=== PATIENT | female | born 1955 | race African-American/Black ===

== ENCOUNTER 2021-10-19 12:09 | Inpatient (IN) ==
[2021-10-19] MEDS ORDERED: ONDANSETRON 4 MG/2 ML VIAL IV PRN (12:23)
[2021-10-19] MEDS ORDERED: GLUCAGON 1 MG VIAL IM PRN (12:25)
[2021-10-19] MEDS ORDERED: DOCUSATE SODIUM 100 MG CAPSULE PO PRN (12:25)
[2021-10-19] MEDS ORDERED: DEXAMETHASONE INJ 20 MG in SODIUM CHLORIDE 0.9% 50 ML IV ONE (12:35)
[2021-10-19] MEDS ORDERED: DEXTROSE 10% 250 ML BAG IV PRN (12:36)
[2021-10-19 14:30] LABS: Basophils # 0.1 10*3/uL (0.0-0.2); Basophils % 0.4 % (0.0-0.8); Eosinophils # 0.2 10*3/uL (0.0-0.87); Eosinophils % 1.1 % (0.00-10.9); Hematocrit 39.2 VOL% (35.7-47.0); Hemoglobin 12.8 GM/DL (12.0-16.0); Immature Granulocytes Absolute 0.16 #; Lymphocytes # 1.1 10*3/uL (1.4-4.0); Lymphocytes % 6.8 % (21.3-54.2); Mean Corpuscular HGB Conc 32.7 GM/DL (32-36); Mean Corpuscular Volume 91.6 FL (87-102); Mean Platelet Volume 10.9 FL (9.6-12.0); Monocytes # 0.9 10*3/uL (0.11-0.8); Monocytes % 5.6 % (1.7-12.7); Neutrophils % 85.1 % (38.7-73.9); Platelet Count 285 T/CUMM (130-400); Red Blood Count 4.28 MC/CUMM (3.8-5.5); Red Cell Distribution Width 13.7 % (9.3-17.3); White Blood Count 16.6 T/CUMM (4-12)
[2021-10-19 14:50] LABS: Alanine Aminotransferase 20 U/L (13-56); Albumin 3.1 G/DL (3.4-5.0); Alkaline Phosphatase 64 U/L (45-117); Aspartate Amino Transferase 19 U/L (0-37); Bilirubin,Total < 0.39 MG/DL (0.20-1.00); Blood Urea Nitrogen 45 MG/DL (7-18); Carbon Dioxide 26 MMOL/L (21-32); Chloride 101 MMOL/L (98-107); Glucose 147 MG/DL (74-106); Osmolality,Calculated 284.1 MOS/KG (273-304); Potassium 3.6 MMOL/L (3.5-5.1); Sodium 135 MMOL/L (136-145); Total Protein 8.9 G/DL (6.4-8.2)
[2021-10-19 14:56] LABS: Calcium 14.2 MG/DL (8.5-10.1)
[2021-10-19] MEDS: ENOXAPARIN 30 MG/0.3 ML SYRINGE SUBCUT SCH (15:25)
[2021-10-19] MEDS: SODIUM CHLORIDE 0.9% 1,000 ML IV SCH (15:26)
[2021-10-19] MEDS: INSULIN LISPRO 100 UNIT/ML SUBCUT SCH ×2 (17:47→21:47)
[2021-10-19] MEDS: SIMVASTATIN 20 MG TABLET PO SCH (21:44)
[2021-10-19] MEDS: ZALEPLON 5 MG CAPSULE PO SCH (21:44)
[2021-10-19] MEDS: ACETAMINOPHEN 325 MG TABLET PO PRN (21:47)
[2021-10-20] MEDS: SODIUM CHLORIDE 0.9% 1,000 ML IV SCH ×2 (01:46→13:17)
[2021-10-20 05:48] LABS: Basophils % 0.1 % (0.0-0.8); Hemoglobin 11.8 GM/DL (12.0-16.0); Immature Granulocytes % 0.9 %; Immature Granulocytes Absolute 0.11 #; Lymphocytes # 0.7 10*3/uL (1.4-4.0); Lymphocytes % 6.3 % (21.3-54.2); Mean Corpuscular HGB Conc 32.8 GM/DL (32-36); Mean Corpuscular Volume 91.8 FL (87-102); Mean Platelet Volume 11.4 FL (9.6-12.0); Monocytes # 0.3 10*3/uL (0.11-0.8); Monocytes % 2.5 % (1.7-12.7); Neutrophils % 90.2 % (38.7-73.9); Platelet Count 281 T/CUMM (130-400); Red Blood Count 3.92 MC/CUMM (3.8-5.5); Red Cell Distribution Width 13.5 % (9.3-17.3); White Blood Count 11.8 T/CUMM (4-12)
[2021-10-20 06:03] LABS: Calcium 13.9 MG/DL (8.5-10.1); Osmolality,Calculated 296.4 MOS/KG (273-304); Potassium 3.3 MMOL/L (3.5-5.1)
[2021-10-20] MEDS ORDERED: POTASSIUM CHLORIDE 20 MEQ TABLET PO ONE (07:55)
[2021-10-20] MEDS ORDERED: LACTULOSE 20 GM/30 ML UDCUP PO ONE (07:56)
[2021-10-20] MEDS: INSULIN LISPRO 100 UNIT/ML SUBCUT SCH ×3 (08:18→17:21)
[2021-10-20] MEDS: POTASSIUM CHLORIDE 20 MEQ TABLET PO SCH (08:47)
[2021-10-20] MEDS: CYPROHEPTADINE 4 MG TABLET PO SCH (08:47)
[2021-10-20] MEDS: PANTOPRAZOLE 40 MG TABLET PO SCH (08:47)
[2021-10-20] MEDS: glipiZIDE 5 MG TABLET PO SCH ×2 (08:47→17:26)
[2021-10-20] MEDS: allopurinoL 100 MG TABLET PO SCH (08:47)
[2021-10-20] MEDS: atenoloL 50 MG TABLET PO SCH (08:48)
[2021-10-20] MEDS: amLODIPine 2.5 MG TABLET PO SCH (08:48)
[2021-10-20] MEDS: DOCUSATE SODIUM 100 MG CAPSULE PO SCH (08:48)
[2021-10-20] MEDS: ZINC GLUCONATE 50 MG TABLET PO SCH (08:48)
[2021-10-20] MEDS: MELOXICAM 7.5 MG TABLET PO SCH (08:48)
[2021-10-20] MEDS: MAGNESIUM CHLORIDE 64 MG TABLET PO SCH (08:48)
[2021-10-20] MEDS: ENALAPRIL 20 MG TABLET PO SCH (08:48)
[2021-10-20] MEDS: CHLORTHALIDONE 25 MG TABLET PO SCH (09:26)
[2021-10-20 12:24] LABS: Immunoglobulin A 318 MG/DL (70-400); Immunoglobulin G 1480 MG/DL (700-1600); Immunoglobulin M 112 MG/DL (40-230)
[2021-10-20] MEDS ORDERED: ZOLEDRONIC ACID 4 MG/100 ML PREMIX IV ONE (13:00)
[2021-10-20] MEDS: ENOXAPARIN 30 MG/0.3 ML SYRINGE SUBCUT SCH (15:09)
[2021-10-20] MEDS: DEXAMETHASONE 10 MG/1 ML VIAL IV SCH (15:09)
[2021-10-20] MEDS: ZALEPLON 5 MG CAPSULE PO SCH (21:05)
[2021-10-20] MEDS: ACETAMINOPHEN 325 MG TABLET PO PRN (21:06)
[2021-10-21] MEDS: INSULIN LISPRO 100 UNIT/ML SUBCUT SCH ×5 (00:04→21:04)
[2021-10-21 06:43] LABS: Basophils % 0.1 % (0.0-0.8); Eosinophils % 0.1 % (0.00-10.9); Hematocrit 36.8 VOL% (35.7-47.0); Hemoglobin 12.2 GM/DL (12.0-16.0); Immature Granulocytes % 1.2 %; Immature Granulocytes Absolute 0.25 #; Lymphocytes # 0.6 10*3/uL (1.4-4.0); Lymphocytes % 2.6 % (21.3-54.2); Mean Corpuscular HGB Conc 33.2 GM/DL (32-36); Mean Corpuscular Volume 90.4 FL (87-102); Mean Platelet Volume 10.9 FL (9.6-12.0); Monocytes # 0.9 10*3/uL (0.11-0.8); Monocytes % 4.2 % (1.7-12.7); Neutrophils % 91.8 % (38.7-73.9); Platelet Count 288 T/CUMM (130-400); Red Blood Count 4.07 MC/CUMM (3.8-5.5); Red Cell Distribution Width 13.7 % (9.3-17.3); White Blood Count 21.3 T/CUMM (4-12)
[2021-10-21 06:59] LABS: Alanine Aminotransferase 23 U/L (13-56); Albumin 2.9 G/DL (3.4-5.0); Alkaline Phosphatase 61 U/L (45-117); Aspartate Amino Transferase 17 U/L (0-37); Bilirubin,Total < 0.39 MG/DL (0.20-1.00); Blood Urea Nitrogen 34 MG/DL (7-18); Calcium 12.7 MG/DL (8.5-10.1); Carbon Dioxide 24 MMOL/L (21-32); Chloride 108 MMOL/L (98-107); Glucose 113 MG/DL (74-106); Osmolality,Calculated 285.5 MOS/KG (273-304); Potassium 3.7 MMOL/L (3.5-5.1); Sodium 139 MMOL/L (136-145)
[2021-10-21 07:14] LABS: Band Neutrophils 1 % (0-10); Lymphocytes 2 % (20-55); Total Cells Counted 100
[2021-10-21 07:15] LABS: Microcytosis Slight; Platelet Estimate Normal
[2021-10-21 07:23] LABS: Immunoglobulin A (Chem) 318 MG/DL (70-400); Immunoglobulin G (Chem) 1480 MG/DL (700-1600); Immunoglobulin M (Chem) 112 MG/DL (40-230); Total Protein (Chem) 8.2 G/DL (6.4-8.3)
[2021-10-21 08:58] LABS: Albumin (SPE) 4.4 G/DL (3.2-5.3); Albumin (SPE) Rel % 53.2 %; Alpha 1 (SPE) 0.4 G/DL (0.1-0.4); Alpha 1 (SPE) Rel % 4.5 %; Alpha 2 (SPE) Rel % 11.8 %; Beta (SPE) 1.1 G/DL (0.5-1.1); Beta (SPE) Rel % 13.8 %; Gamma (SPE) 1.4 G/DL (0.7-1.7); Gamma (SPE) Rel % 16.7 %
[2021-10-21] MEDS ORDERED: BUPIVACAINE MPF 0.25% 10 ML VIAL ONE (09:44)
[2021-10-21] MEDS ORDERED: TISSUE ADHESIVE 1 EACH APPLICATOR TOP ONE (09:44)
[2021-10-21] MEDS ORDERED: LIDOCAINE 1%/EPI INJ 20 ML VIAL ONE (09:44)
[2021-10-21] MEDS ORDERED: fentaNYL 100 MCG/2 ML VIAL ONE (10:24)
[2021-10-21] MEDS ORDERED: MIDAZOLAM 2 MG/2 ML VIAL ONE (10:24)
[2021-10-21] MEDS ORDERED: HEPARIN 5,000 UNIT/1 ML VIAL ONE (10:30)
[2021-10-21] MEDS ORDERED: KETAMINE 500 MG/10 ML VIAL ONE (11:02)
[2021-10-21] MEDS ORDERED: hydrALAZINE 20 MG/1 ML VIAL ONE (11:27)
[2021-10-21] MEDS ORDERED: LABETALOL 20 MG/4 ML SYRINGE IV ONE (11:34)
[2021-10-21 11:40] LABS: Kappa Free Light Chain 4.31 mg/dL; Lambda Free Light Chain 4.28 mg/dL
[2021-10-21] MEDS: CHLORTHALIDONE 25 MG TABLET PO SCH (12:37)
[2021-10-21] MEDS: MELOXICAM 7.5 MG TABLET PO SCH (12:37)
[2021-10-21] MEDS: DOCUSATE SODIUM 100 MG CAPSULE PO SCH (12:37)
[2021-10-21] MEDS: glipiZIDE 5 MG TABLET PO SCH ×2 (12:38→16:58)
[2021-10-21] MEDS: allopurinoL 100 MG TABLET PO SCH (12:38)
[2021-10-21] MEDS: MAGNESIUM CHLORIDE 64 MG TABLET PO SCH (12:38)
[2021-10-21] MEDS: ENALAPRIL 20 MG TABLET PO SCH (12:38)
[2021-10-21] MEDS: CYPROHEPTADINE 4 MG TABLET PO SCH (12:38)
[2021-10-21] MEDS: atenoloL 50 MG TABLET PO SCH (12:39)
[2021-10-21] MEDS: POTASSIUM CHLORIDE 20 MEQ TABLET PO SCH (12:39)
[2021-10-21] MEDS: ZINC GLUCONATE 50 MG TABLET PO SCH (12:39)
[2021-10-21] MEDS: amLODIPine 2.5 MG TABLET PO SCH (12:39)
[2021-10-21] MEDS: PANTOPRAZOLE 40 MG TABLET PO SCH (12:39)
[2021-10-21] MEDS: DEXAMETHASONE 10 MG/1 ML VIAL IV SCH (12:40)
[2021-10-21] MEDS: SODIUM CHLORIDE 0.9% 1,000 ML IV SCH ×2 (15:05→21:04)
[2021-10-21] MEDS ORDERED: MAGNESIUM HYDROXIDE SUSP 30 ML UDCUP PO PRN (19:40)
[2021-10-21] MEDS: SIMVASTATIN 20 MG TABLET PO SCH (20:50)
[2021-10-21] MEDS: ZALEPLON 5 MG CAPSULE PO SCH (20:50)
[2021-10-22] MEDS: INSULIN LISPRO 100 UNIT/ML SUBCUT SCH ×4 (09:00→20:20)
[2021-10-22] MEDS: allopurinoL 100 MG TABLET PO SCH (09:13)
[2021-10-22] MEDS: amLODIPine 2.5 MG TABLET PO SCH (09:13)
[2021-10-22] MEDS: DOCUSATE SODIUM 100 MG CAPSULE PO SCH (09:13)
[2021-10-22] MEDS: MELOXICAM 7.5 MG TABLET PO SCH (09:13)
[2021-10-22] MEDS: PANTOPRAZOLE 40 MG TABLET PO SCH (09:13)
[2021-10-22] MEDS: atenoloL 50 MG TABLET PO SCH (09:13)
[2021-10-22] MEDS: DEXAMETHASONE 10 MG/1 ML VIAL IV SCH (09:13)
[2021-10-22] MEDS: POTASSIUM CHLORIDE 20 MEQ TABLET PO SCH (09:13)
[2021-10-22] MEDS: MAGNESIUM CHLORIDE 64 MG TABLET PO SCH (09:13)
[2021-10-22] MEDS: ZINC GLUCONATE 50 MG TABLET PO SCH (09:13)
[2021-10-22] MEDS: glipiZIDE 5 MG TABLET PO SCH ×2 (09:14→16:20)
[2021-10-22] MEDS: CHLORTHALIDONE 25 MG TABLET PO SCH (09:14)
[2021-10-22] MEDS: ENALAPRIL 20 MG TABLET PO SCH (09:14)
[2021-10-22] MEDS: CYPROHEPTADINE 4 MG TABLET PO SCH (09:14)
[2021-10-22 09:42] LABS: Basophils % 0.2 % (0.0-0.8); Eosinophils # 0.4 10*3/uL (0.0-0.87); Eosinophils % 2.5 % (0.00-10.9); Hematocrit 34.4 VOL% (35.7-47.0); Hemoglobin 11.2 GM/DL (12.0-16.0); Immature Granulocytes Absolute 0.15 #; Lymphocytes # 1.1 10*3/uL (1.4-4.0); Lymphocytes % 7.1 % (21.3-54.2); Mean Corpuscular HGB Conc 32.6 GM/DL (32-36); Mean Platelet Volume 10.7 FL (9.6-12.0); Monocytes # 1.5 10*3/uL (0.11-0.8); Monocytes % 10.2 % (1.7-12.7); Platelet Count 224 T/CUMM (130-400); Red Blood Count 3.74 MC/CUMM (3.8-5.5); Red Cell Distribution Width 13.9 % (9.3-17.3); White Blood Count 14.9 T/CUMM (4-12)
[2021-10-22 10:03] LABS: Alanine Aminotransferase 30 U/L (13-56); Albumin 2.6 G/DL (3.4-5.0); Alkaline Phosphatase 56 U/L (45-117); Aspartate Amino Transferase 20 U/L (0-37); Bilirubin,Total < 0.39 MG/DL (0.20-1.00); Blood Urea Nitrogen 31 MG/DL (7-18); Calcium 10.3 MG/DL (8.5-10.1); Carbon Dioxide 23 MMOL/L (21-32); Chloride 110 MMOL/L (98-107); Glucose 137 MG/DL (74-106); Osmolality,Calculated 287.4 MOS/KG (273-304); Potassium 3.6 MMOL/L (3.5-5.1); Sodium 140 MMOL/L (136-145)
[2021-10-22] MEDS: SODIUM CHLORIDE 0.9% 1,000 ML IV SCH ×2 (16:11→20:21)
[2021-10-22] MEDS: ZALEPLON 5 MG CAPSULE PO SCH (20:20)
[2021-10-23] MEDS: SODIUM CHLORIDE 0.9% 1,000 ML IV SCH ×2 (05:28→17:41)
[2021-10-23 05:53] LABS: Basophils % 0.2 % (0.0-0.8); Eosinophils # 0.1 10*3/uL (0.0-0.87); Eosinophils % 0.6 % (0.00-10.9); Immature Granulocytes % 1.8 %; Immature Granulocytes Absolute 0.32 #; Lymphocytes # 1.1 10*3/uL (1.4-4.0); Mean Corpuscular HGB Conc 32.4 GM/DL (32-36); Mean Corpuscular Volume 92.1 FL (87-102); Mean Platelet Volume 11.1 FL (9.6-12.0); Monocytes # 1.8 10*3/uL (0.11-0.8); Monocytes % 9.7 % (1.7-12.7); Neutrophils % 81.7 % (38.7-73.9); Platelet Count 232 T/CUMM (130-400); Red Blood Count 3.69 MC/CUMM (3.8-5.5); Red Cell Distribution Width 13.8 % (9.3-17.3)
[2021-10-23 06:09] LABS: Alanine Aminotransferase 35 U/L (13-56); Albumin 2.5 G/DL (3.4-5.0); Alkaline Phosphatase 63 U/L (45-117); Aspartate Amino Transferase 15 U/L (0-37); Bilirubin,Total < 0.39 MG/DL (0.20-1.00); Blood Urea Nitrogen 23 MG/DL (7-18); Calcium 10.3 MG/DL (8.5-10.1); Carbon Dioxide 25 MMOL/L (21-32); Chloride 110 MMOL/L (98-107); Glucose 106 MG/DL (74-106); Osmolality,Calculated 282.4 MOS/KG (273-304); Potassium 3.6 MMOL/L (3.5-5.1); Sodium 140 MMOL/L (136-145); Total Protein 7.2 G/DL (6.4-8.2)
[2021-10-23] MEDS: INSULIN LISPRO 100 UNIT/ML SUBCUT SCH ×4 (07:19→20:10)
[2021-10-23] MEDS: PANTOPRAZOLE 40 MG TABLET PO SCH (10:07)
[2021-10-23] MEDS: atenoloL 50 MG TABLET PO SCH (10:07)
[2021-10-23] MEDS: glipiZIDE 5 MG TABLET PO SCH ×2 (10:07→16:42)
[2021-10-23] MEDS: allopurinoL 100 MG TABLET PO SCH (10:08)
[2021-10-23] MEDS: ZINC GLUCONATE 50 MG TABLET PO SCH (10:09)
[2021-10-23] MEDS: CYPROHEPTADINE 4 MG TABLET PO SCH (10:09)
[2021-10-23] MEDS: MELOXICAM 7.5 MG TABLET PO SCH (10:09)
[2021-10-23] MEDS: POTASSIUM CHLORIDE 20 MEQ TABLET PO SCH (10:10)
[2021-10-23] MEDS: ENALAPRIL 20 MG TABLET PO SCH (10:10)
[2021-10-23] MEDS: amLODIPine 2.5 MG TABLET PO SCH (10:12)
[2021-10-23] MEDS: CHLORTHALIDONE 25 MG TABLET PO SCH (10:12)
[2021-10-23] MEDS: DEXAMETHASONE 10 MG/1 ML VIAL IV SCH (10:15)
[2021-10-23] MEDS: MAGNESIUM CHLORIDE 64 MG TABLET PO SCH (10:15)
[2021-10-23] MEDS: DOCUSATE SODIUM 100 MG CAPSULE PO SCH (10:15)
[2021-10-23] MEDS: ACETAMINOPHEN 325 MG TABLET PO PRN ×2 (10:56→17:38)
[2021-10-23] MEDS: ALPRAZolam 0.25 MG TABLET PO SCH ×2 (16:42→20:08)
[2021-10-23] MEDS: LIDOCAINE 5% PATCH TRANSDERM SCH (16:43)
[2021-10-23] MEDS ORDERED: BENZOCAINE/MENTHOL LOZENGE 18/BOX PO PRN (17:01)
[2021-10-23] MEDS ORDERED: FUROSEMIDE 40 MG/4 ML VIAL IV ONE (18:33)
[2021-10-23] MEDS: ALBUTEROL/IPRATROPIUM 3 ML NEB RESP TX SCH (19:44)
[2021-10-23] MEDS: ZALEPLON 5 MG CAPSULE PO SCH (20:08)
[2021-10-23] MEDS: methylPREDNISolone SOD SUC 40 MG/1 ML VIAL IV SCH (20:11)
[2021-10-23] MEDS ORDERED: cefTRIAXone 1,000 MG in SODIUM CHLORIDE 0.9% 100 ML IV SCH (21:00)
[2021-10-24] MEDS: ALBUTEROL/IPRATROPIUM 3 ML NEB RESP TX SCH ×2 (00:28→07:34)
[2021-10-24 05:05] LABS: Basophils % 0.1 % (0.0-0.8); Eosinophils # 0.1 10*3/uL (0.0-0.87); Eosinophils % 0.5 % (0.00-10.9); Hematocrit 35.1 VOL% (35.7-47.0); Hemoglobin 11.4 GM/DL (12.0-16.0); Immature Granulocytes % 1.8 %; Immature Granulocytes Absolute 0.37 #; Lymphocytes # 1.1 10*3/uL (1.4-4.0); Lymphocytes % 5.6 % (21.3-54.2); Mean Corpuscular HGB Conc 32.5 GM/DL (32-36); Mean Corpuscular Volume 91.9 FL (87-102); Monocytes # 1.6 10*3/uL (0.11-0.8); Monocytes % 7.8 % (1.7-12.7); Neutrophils % 84.2 % (38.7-73.9); Platelet Count 227 T/CUMM (130-400); Red Blood Count 3.82 MC/CUMM (3.8-5.5); Red Cell Distribution Width 13.9 % (9.3-17.3); White Blood Count 20.1 T/CUMM (4-12)
[2021-10-24 05:33] LABS: Alanine Aminotransferase 41 U/L (13-56); Albumin 2.7 G/DL (3.4-5.0); Alkaline Phosphatase 59 U/L (45-117); Aspartate Amino Transferase 15 U/L (0-37); Bilirubin,Total < 0.39 MG/DL (0.20-1.00); Blood Urea Nitrogen 23 MG/DL (7-18); Carbon Dioxide 26 MMOL/L (21-32); Chloride 108 MMOL/L (98-107); Glucose 114 MG/DL (74-106); Osmolality,Calculated 285.3 MOS/KG (273-304); Potassium 3.6 MMOL/L (3.5-5.1); Sodium 141 MMOL/L (136-145); Total Protein 7.3 G/DL (6.4-8.2)
[2021-10-24 05:39] LABS: Eosinophils 1 % (0-10); Lymphocytes 5 % (20-55); Platelet Estimate Adequate; Total Cells Counted 100
[2021-10-24] MEDS: SODIUM CHLORIDE 0.9% 1,000 ML IV SCH (06:18)
[2021-10-24] MEDS: INSULIN LISPRO 100 UNIT/ML SUBCUT SCH ×2 (07:58→13:06)
[2021-10-24] MEDS ORDERED: glipiZIDE 10 MG TABLET PO SCH (08:00)
[2021-10-24] MEDS ORDERED: LACTULOSE 20 GM/30 ML UDCUP PO PRN (08:51)
[2021-10-24] MEDS: MELOXICAM 7.5 MG TABLET PO SCH (08:58)
[2021-10-24] MEDS ORDERED: amLODIPine 5 MG TABLET PO SCH (09:00)
[2021-10-24] MEDS ORDERED: FUROSEMIDE 20 MG/2 ML VIAL IV SCH (09:00)
[2021-10-24] MEDS: MAGNESIUM CHLORIDE 64 MG TABLET PO SCH (09:00)
[2021-10-24] MEDS: PANTOPRAZOLE 40 MG TABLET PO SCH (09:01)
[2021-10-24] MEDS: POTASSIUM CHLORIDE 20 MEQ TABLET PO SCH (09:01)
[2021-10-24] MEDS: ENALAPRIL 20 MG TABLET PO SCH (09:01)
[2021-10-24] MEDS: ALPRAZolam 0.25 MG TABLET PO SCH ×2 (09:01→16:05)
[2021-10-24] MEDS: CHLORTHALIDONE 25 MG TABLET PO SCH (09:01)
[2021-10-24] MEDS: allopurinoL 100 MG TABLET PO SCH (09:01)
[2021-10-24] MEDS: ZINC GLUCONATE 50 MG TABLET PO SCH (09:01)
[2021-10-24] MEDS: CYPROHEPTADINE 4 MG TABLET PO SCH (09:01)
[2021-10-24] MEDS: DOCUSATE SODIUM 100 MG CAPSULE PO SCH (09:02)
[2021-10-24] MEDS: atenoloL 50 MG TABLET PO SCH (09:02)
[2021-10-24] MEDS: LIDOCAINE 5% PATCH TRANSDERM SCH (09:03)
[2021-10-24] MEDS: DEXAMETHASONE 10 MG/1 ML VIAL IV SCH (09:20)
[2021-10-24] MEDS: methylPREDNISolone SOD SUC 40 MG/1 ML VIAL IV SCH (09:20)
[2021-10-24] MEDS: ACETAMINOPHEN 325 MG TABLET PO PRN (10:19)
[2021-10-24] MEDS ORDERED: PEMBROLIZUMAB 200 MG in SODIUM CHLORIDE 0.9% 50 ML IV ONE (11:00)
[2021-10-24 12:42] VITALS: BP 145/66
[2021-10-24] MEDS ORDERED: MAGNESIUM CHLORIDE 64 MG TABLET PO ONE (12:49)
[2021-10-24] MEDS ORDERED: TUBERCULIN SKIN TEST 0.1 ML SYRINGE INTRADERM ONE (16:07)
== END 2021-10-24 16:40 | disposition home or self-care (01) | DRG 982 ==
LOC: N.EDINP 12:09 → N.ED 12:09 → N.TELES 14:00
PROVIDERS: ADMIT Family Medicine; ATTEND Family Medicine

== ENCOUNTER 2021-11-08 08:21 | Inpatient (IN) ==
[2021-11-08 09:29] LABS: Basophils # 0.1 10*3/uL (0.0-0.2); Basophils % 0.3 % (0.0-0.8); Eosinophils # 0.2 10*3/uL (0.0-0.87); Hematocrit 37.7 VOL% (35.7-47.0); Hemoglobin 11.6 GM/DL (12.0-16.0); Immature Granulocytes % 0.9 %; Immature Granulocytes Absolute 0.15 #; Lymphocytes # 0.9 10*3/uL (1.4-4.0); Lymphocytes % 5.3 % (21.3-54.2); Mean Corpuscular HGB Conc 30.8 GM/DL (32-36); Mean Corpuscular Volume 94.7 FL (87-102); Monocytes # 1.1 10*3/uL (0.11-0.8); Monocytes % 6.5 % (1.7-12.7); Platelet Count 194 T/CUMM (130-400); Red Blood Count 3.98 MC/CUMM (3.8-5.5); Red Cell Distribution Width 14.9 % (9.3-17.3); White Blood Count 16.5 T/CUMM (4-12)
[2021-11-08 10:01] LABS: Alanine Aminotransferase 17 U/L (13-56); Albumin 2.5 G/DL (3.4-5.0); Alkaline Phosphatase 63 U/L (45-117); Aspartate Amino Transferase 17 U/L (0-37); Bilirubin,Total < 0.39 MG/DL (0.20-1.00); Blood Urea Nitrogen 20 MG/DL (7-18); Calcium 8.3 MG/DL (8.5-10.1); Carbon Dioxide 27 MMOL/L (21-32); Chloride 113 MMOL/L (98-107); Glucose 151 MG/DL (74-106); Osmolality,Calculated 293.7 MOS/KG (273-304); Potassium 3.7 MMOL/L (3.5-5.1); Sodium 145 MMOL/L (136-145); Total Protein 6.6 G/DL (6.4-8.2)
[2021-11-08] MEDS ORDERED: ALBUTEROL 2.5 MG/3 ML NEB RESP TX STA (11:02)
[2021-11-08] MEDS ORDERED: methylPREDNISolone SOD SUC 125 MG/2 ML VIAL IV STA (11:02)
[2021-11-08] MEDS ORDERED: PIPERACILLIN/TAZOBACTAM 3,375 MG in SODIUM CHLORIDE 0.9% 100 ML IV STA (11:07)
[2021-11-08] MEDS ORDERED: VANCOMYCIN INJ 1,000 MG in SODIUM CHLORIDE 0.9% 250 ML IV SCH (13:26)
[2021-11-08] MEDS ORDERED: ACETAMINOPHEN 325 MG TABLET PO PRN (13:26)
[2021-11-08] MEDS ORDERED: ONDANSETRON 4 MG/2 ML VIAL IV PRN ×2 (13:26)
[2021-11-08] MEDS ORDERED: GLUCAGON 1 MG VIAL IM PRN (13:26)
[2021-11-08] MEDS ORDERED: DEXTROSE 10% 250 ML BAG IV PRN (13:43)
[2021-11-08] MEDS: ALBUTEROL/IPRATROPIUM 3 ML NEB RESP TX SCH ×3 (14:36→23:37)
[2021-11-08] MEDS: VANCOMYCIN INJ 1,250 MG in SODIUM CHLORIDE 0.9% 250 ML IV SCH (15:17)
[2021-11-08] MEDS: SODIUM CHLORIDE 0.9% 1,000 ML IV SCH (15:22)
[2021-11-08] MEDS: INSULIN LISPRO 100 UNIT/ML SUBCUT SCH ×3 (16:51→21:42)
[2021-11-08] MEDS ORDERED: FUROSEMIDE 40 MG/4 ML VIAL IV ONE (17:00)
[2021-11-08] MEDS: methylPREDNISolone SOD SUC 40 MG/1 ML VIAL IV SCH (17:32)
[2021-11-08] MEDS ORDERED: DOCUSATE SODIUM 100 MG CAPSULE PO SCH (21:00)
[2021-11-08] MEDS: metFORMIN 850 MG TABLET PO SCH ×2 (21:36→23:07)
[2021-11-08] MEDS: DOCUSATE SODIUM 100 MG CAPSULE PO SCH ×2 (21:41→23:01)
[2021-11-08] MEDS: SIMVASTATIN 20 MG TABLET PO SCH ×2 (21:41→23:08)
[2021-11-08] MEDS: CLORAZEPATE 7.5 MG TABLET PO SCH ×2 (21:41→23:02)
[2021-11-08] MEDS: PIPERACILLIN/TAZOBACTAM 3,375 MG in SODIUM CHLORIDE 0.9% 100 ML IV SCH (21:41)
[2021-11-08] MEDS: glipiZIDE 10 MG TABLET PO SCH (21:43)
[2021-11-09] MEDS: methylPREDNISolone SOD SUC 40 MG/1 ML VIAL IV SCH ×3 (01:42→16:58)
[2021-11-09] MEDS: VANCOMYCIN INJ 1,250 MG in SODIUM CHLORIDE 0.9% 250 ML IV SCH ×2 (02:00→17:02)
[2021-11-09] MEDS: PIPERACILLIN/TAZOBACTAM 3,375 MG in SODIUM CHLORIDE 0.9% 100 ML IV SCH ×3 (03:22→21:28)
[2021-11-09] MEDS: ALBUTEROL/IPRATROPIUM 3 ML NEB RESP TX SCH ×5 (03:31→19:05)
[2021-11-09 04:38] LABS: Basophils % 0.1 % (0.0-0.8); Eosinophils % 0.2 % (0.00-10.9); Hemoglobin 11.1 GM/DL (12.0-16.0); Immature Granulocytes % 1.3 %; Immature Granulocytes Absolute 0.22 #; Lymphocytes # 0.6 10*3/uL (1.4-4.0); Lymphocytes % 3.8 % (21.3-54.2); Mean Corpuscular HGB Conc 31.7 GM/DL (32-36); Mean Corpuscular Volume 93.6 FL (87-102); Mean Platelet Volume 11.5 FL (9.6-12.0); Monocytes # 0.6 10*3/uL (0.11-0.8); Monocytes % 3.3 % (1.7-12.7); Neutrophils % 91.3 % (38.7-73.9); Platelet Count 193 T/CUMM (130-400); Red Blood Count 3.74 MC/CUMM (3.8-5.5); Red Cell Distribution Width 15.1 % (9.3-17.3); White Blood Count 16.9 T/CUMM (4-12)
[2021-11-09 05:00] LABS: Band Neutrophils 1 % (0-10); Calcium 8.3 MG/DL (8.5-10.1); Lymphocytes 2 % (20-55); Osmolality,Calculated 294.7 MOS/KG (273-304); Platelet Estimate Adequate; Potassium 3.8 MMOL/L (3.5-5.1); Total Cells Counted 100
[2021-11-09] MEDS ORDERED: DEXAMETHASONE 4 MG TABLET PO SCH (09:00)
[2021-11-09] MEDS ORDERED: PANTOPRAZOLE 40 MG TABLET PO SCH (09:00)
[2021-11-09] MEDS: DOCUSATE SODIUM 100 MG CAPSULE PO SCH ×2 (09:31→21:24)
[2021-11-09] MEDS: MULTIVITAMIN (CENTRUM) TABLET PO SCH (09:31)
[2021-11-09] MEDS: glipiZIDE 10 MG TABLET PO SCH ×2 (09:32→21:24)
[2021-11-09] MEDS: amLODIPine 2.5 MG TABLET PO SCH (09:32)
[2021-11-09] MEDS: CLORAZEPATE 7.5 MG TABLET PO SCH ×2 (09:33→21:24)
[2021-11-09] MEDS: metFORMIN 850 MG TABLET PO SCH ×2 (09:33→21:24)
[2021-11-09] MEDS: atenoloL 50 MG TABLET PO SCH (09:34)
[2021-11-09] MEDS: PANTOPRAZOLE 40 MG TABLET PO SCH (09:34)
[2021-11-09] MEDS: CYPROHEPTADINE 4 MG TABLET PO SCH (09:34)
[2021-11-09] MEDS: MAGNESIUM CHLORIDE 64 MG TABLET PO SCH (09:35)
[2021-11-09] MEDS: MELOXICAM 7.5 MG TABLET PO SCH (09:35)
[2021-11-09] MEDS: ENALAPRIL 20 MG TABLET PO SCH (09:36)
[2021-11-09] MEDS: INSULIN LISPRO 100 UNIT/ML SUBCUT SCH ×4 (09:37→21:24)
[2021-11-09] MEDS: allopurinoL 300 MG TABLET PO SCH (09:45)
[2021-11-09] MEDS: SODIUM CHLORIDE 0.9% 1,000 ML IV SCH (12:45)
[2021-11-09 19:32] LABS: RBC,Urine 2 /HPF (0-4); Squamous Epithelial Cell,Urine Occasional /HPF (0-10); Urine Color Yellow (Yellow)
[2021-11-09 19:33] LABS: Bilirubin,Urine Negative (Negative); Blood, Urine Negative (Negative); Glucose,Urine (UA) Negative (Negative); Ketones,Urine 15 mg/dL (Negative); Nitrite,Urine Negative (Negative); Protein,Urine 100 mg/dL (Negative); Urine Appearance Slightly Cloudy (Clear); Urine Specific Gravity 1.025 (1.001-1.035); Urine Urobilinogen 0.2 eU/dL (<2.0)
[2021-11-09] MEDS: SIMVASTATIN 20 MG TABLET PO SCH (21:24)
[2021-11-09] MEDS: BENZONATATE 100 MG CAPSULE PO PRN (23:14)
[2021-11-09] MEDS: ACETAMINOPHEN 325 MG TABLET PO PRN (23:14)
[2021-11-10] MEDS: methylPREDNISolone SOD SUC 40 MG/1 ML VIAL IV SCH ×3 (02:27→17:30)
[2021-11-10] MEDS: VANCOMYCIN INJ 1,250 MG in SODIUM CHLORIDE 0.9% 250 ML IV SCH ×3 (02:28→20:29)
[2021-11-10] MEDS: ALBUTEROL/IPRATROPIUM 3 ML NEB RESP TX SCH ×7 (03:35→23:17)
[2021-11-10] MEDS: PIPERACILLIN/TAZOBACTAM 3,375 MG in SODIUM CHLORIDE 0.9% 100 ML IV SCH ×3 (04:16→22:22)
[2021-11-10] MEDS: DOCUSATE SODIUM 100 MG CAPSULE PO SCH ×2 (09:40→20:24)
[2021-11-10] MEDS: glipiZIDE 10 MG TABLET PO SCH ×2 (09:57→20:24)
[2021-11-10] MEDS: MAGNESIUM CHLORIDE 64 MG TABLET PO SCH (09:57)
[2021-11-10] MEDS: CLORAZEPATE 7.5 MG TABLET PO SCH ×2 (09:57→20:24)
[2021-11-10] MEDS: MELOXICAM 7.5 MG TABLET PO SCH (09:57)
[2021-11-10] MEDS: CYPROHEPTADINE 4 MG TABLET PO SCH (09:58)
[2021-11-10] MEDS: metFORMIN 850 MG TABLET PO SCH ×2 (09:59→20:24)
[2021-11-10] MEDS: INSULIN LISPRO 100 UNIT/ML SUBCUT SCH ×4 (09:59→20:23)
[2021-11-10] MEDS: amLODIPine 2.5 MG TABLET PO SCH (10:00)
[2021-11-10] MEDS: PANTOPRAZOLE 40 MG TABLET PO SCH (10:00)
[2021-11-10] MEDS: ENALAPRIL 20 MG TABLET PO SCH (10:00)
[2021-11-10] MEDS: MULTIVITAMIN (CENTRUM) TABLET PO SCH (10:01)
[2021-11-10] MEDS: allopurinoL 300 MG TABLET PO SCH (10:01)
[2021-11-10] MEDS: ACETAMINOPHEN 325 MG TABLET PO PRN ×2 (10:01→16:27)
[2021-11-10] MEDS: atenoloL 50 MG TABLET PO SCH (10:02)
[2021-11-10] MEDS: SODIUM CHLORIDE 0.9% 1,000 ML IV SCH (15:47)
[2021-11-10] MEDS: SIMVASTATIN 20 MG TABLET PO SCH (20:24)
[2021-11-11] MEDS: methylPREDNISolone SOD SUC 40 MG/1 ML VIAL IV SCH ×3 (00:39→16:20)
[2021-11-11] MEDS: ALBUTEROL/IPRATROPIUM 3 ML NEB RESP TX SCH ×6 (02:59→23:00)
[2021-11-11] MEDS: PIPERACILLIN/TAZOBACTAM 3,375 MG in SODIUM CHLORIDE 0.9% 100 ML IV SCH ×3 (04:00→21:39)
[2021-11-11] MEDS: BENZONATATE 100 MG CAPSULE PO PRN (06:26)
[2021-11-11] MEDS: INSULIN LISPRO 100 UNIT/ML SUBCUT SCH ×4 (08:07→21:11)
[2021-11-11] MEDS: ACETAMINOPHEN 325 MG TABLET PO PRN ×2 (10:17→16:33)
[2021-11-11] MEDS: DOCUSATE SODIUM 100 MG CAPSULE PO SCH ×2 (10:18→21:12)
[2021-11-11] MEDS: MAGNESIUM CHLORIDE 64 MG TABLET PO SCH (10:19)
[2021-11-11] MEDS: atenoloL 50 MG TABLET PO SCH (10:19)
[2021-11-11] MEDS: PANTOPRAZOLE 40 MG TABLET PO SCH (10:19)
[2021-11-11] MEDS: CYPROHEPTADINE 4 MG TABLET PO SCH (10:19)
[2021-11-11] MEDS: amLODIPine 2.5 MG TABLET PO SCH (10:20)
[2021-11-11] MEDS: glipiZIDE 10 MG TABLET PO SCH ×2 (10:20→21:11)
[2021-11-11] MEDS: MULTIVITAMIN (CENTRUM) TABLET PO SCH (10:20)
[2021-11-11] MEDS: MELOXICAM 7.5 MG TABLET PO SCH (10:20)
[2021-11-11] MEDS: metFORMIN 850 MG TABLET PO SCH ×2 (10:20→21:12)
[2021-11-11] MEDS: allopurinoL 300 MG TABLET PO SCH (10:21)
[2021-11-11] MEDS: ENALAPRIL 20 MG TABLET PO SCH (10:21)
[2021-11-11] MEDS: CLORAZEPATE 7.5 MG TABLET PO SCH ×2 (10:23→21:12)
[2021-11-11] MEDS: VANCOMYCIN INJ 1,250 MG in SODIUM CHLORIDE 0.9% 250 ML IV SCH (16:16)
[2021-11-11] MEDS: SODIUM CHLORIDE 0.9% 1,000 ML IV SCH (16:20)
[2021-11-11] MEDS: SIMVASTATIN 20 MG TABLET PO SCH (21:11)
[2021-11-12] MEDS: methylPREDNISolone SOD SUC 40 MG/1 ML VIAL IV SCH ×3 (01:44→17:59)
[2021-11-12] MEDS: ALBUTEROL/IPRATROPIUM 3 ML NEB RESP TX SCH ×5 (02:35→23:41)
[2021-11-12] MEDS: PIPERACILLIN/TAZOBACTAM 3,375 MG in SODIUM CHLORIDE 0.9% 100 ML IV SCH ×3 (04:31→21:23)
[2021-11-12] MEDS ORDERED: cloNIDine 0.1 MG TABLET PO PRN (04:58)
[2021-11-12] MEDS: INSULIN LISPRO 100 UNIT/ML SUBCUT SCH ×4 (08:35→21:02)
[2021-11-12] MEDS: CLORAZEPATE 7.5 MG TABLET PO SCH ×2 (09:45→21:04)
[2021-11-12] MEDS: atenoloL 50 MG TABLET PO SCH (09:46)
[2021-11-12] MEDS: allopurinoL 300 MG TABLET PO SCH (09:46)
[2021-11-12] MEDS: ENALAPRIL 20 MG TABLET PO SCH (09:46)
[2021-11-12] MEDS: CYPROHEPTADINE 4 MG TABLET PO SCH (09:47)
[2021-11-12] MEDS: amLODIPine 2.5 MG TABLET PO SCH (09:47)
[2021-11-12] MEDS: MELOXICAM 7.5 MG TABLET PO SCH (09:47)
[2021-11-12] MEDS: MAGNESIUM CHLORIDE 64 MG TABLET PO SCH (09:48)
[2021-11-12] MEDS: MULTIVITAMIN (CENTRUM) TABLET PO SCH (09:48)
[2021-11-12] MEDS: metFORMIN 850 MG TABLET PO SCH ×2 (09:48→21:04)
[2021-11-12] MEDS: glipiZIDE 10 MG TABLET PO SCH ×2 (09:48→21:03)
[2021-11-12] MEDS: PANTOPRAZOLE 40 MG TABLET PO SCH (09:49)
[2021-11-12] MEDS: DOCUSATE SODIUM 100 MG CAPSULE PO SCH ×2 (09:49→21:04)
[2021-11-12] MEDS: VANCOMYCIN INJ 1,250 MG in SODIUM CHLORIDE 0.9% 250 ML IV SCH (10:14)
[2021-11-12] MEDS: LIDOCAINE 5% PATCH TRANSDERM SCH (12:17)
[2021-11-12] MEDS: SODIUM CHLORIDE 0.9% 1,000 ML IV SCH (17:41)
[2021-11-12] MEDS: SIMVASTATIN 20 MG TABLET PO SCH (21:04)
[2021-11-12] MEDS: MELATONIN 3 MG TABLET PO PRN (21:16)
[2021-11-13] MEDS: methylPREDNISolone SOD SUC 40 MG/1 ML VIAL IV SCH ×3 (01:15→17:29)
[2021-11-13] MEDS: ALBUTEROL/IPRATROPIUM 3 ML NEB RESP TX SCH ×6 (03:18→19:49)
[2021-11-13] MEDS: VANCOMYCIN INJ 1,250 MG in SODIUM CHLORIDE 0.9% 250 ML IV SCH ×2 (04:16→23:55)
[2021-11-13 05:41] LABS: Osmolality,Calculated 289.1 MOS/KG (273-304)
[2021-11-13] MEDS: PIPERACILLIN/TAZOBACTAM 3,375 MG in SODIUM CHLORIDE 0.9% 100 ML IV SCH ×3 (07:09→16:13)
[2021-11-13] MEDS: LIDOCAINE 5% PATCH TRANSDERM SCH (09:44)
[2021-11-13] MEDS: metFORMIN 850 MG TABLET PO SCH ×2 (09:49→23:03)
[2021-11-13] MEDS: CLORAZEPATE 7.5 MG TABLET PO SCH ×2 (09:50→23:04)
[2021-11-13] MEDS: amLODIPine 2.5 MG TABLET PO SCH (09:50)
[2021-11-13] MEDS: MELOXICAM 7.5 MG TABLET PO SCH (09:50)
[2021-11-13] MEDS: MULTIVITAMIN (CENTRUM) TABLET PO SCH (09:51)
[2021-11-13] MEDS: PANTOPRAZOLE 40 MG TABLET PO SCH (09:51)
[2021-11-13] MEDS: allopurinoL 300 MG TABLET PO SCH (09:51)
[2021-11-13] MEDS: CYPROHEPTADINE 4 MG TABLET PO SCH (09:51)
[2021-11-13] MEDS: glipiZIDE 10 MG TABLET PO SCH ×2 (09:52→23:03)
[2021-11-13] MEDS: MAGNESIUM CHLORIDE 64 MG TABLET PO SCH (09:52)
[2021-11-13] MEDS: ENALAPRIL 20 MG TABLET PO SCH (09:52)
[2021-11-13] MEDS: atenoloL 50 MG TABLET PO SCH (09:52)
[2021-11-13] MEDS: INSULIN LISPRO 100 UNIT/ML SUBCUT SCH ×4 (09:58→23:04)
[2021-11-13] MEDS: DOCUSATE SODIUM 100 MG CAPSULE PO SCH ×2 (10:06→23:02)
[2021-11-13] MEDS: ARFORMOTEROL 15 MCG/2 ML NEB RESP TX SCH ×3 (13:10→19:49)
[2021-11-13] MEDS: BUDESONIDE 0.5 MG/2 ML NEB RESP TX SCH ×3 (13:10→19:50)
[2021-11-13] MEDS: THEOPHYLLINE ER (24 HR) 400 MG CAPSULE PO SCH (14:17)
[2021-11-13] MEDS: SODIUM CHLORIDE 0.9% 1,000 ML IV SCH (14:36)
[2021-11-13] MEDS: SIMVASTATIN 20 MG TABLET PO SCH (23:05)
[2021-11-14] MEDS: ALBUTEROL/IPRATROPIUM 3 ML NEB RESP TX SCH ×6 (00:02→20:27)
[2021-11-14] MEDS: methylPREDNISolone SOD SUC 40 MG/1 ML VIAL IV SCH ×3 (01:50→17:07)
[2021-11-14] MEDS: PIPERACILLIN/TAZOBACTAM 3,375 MG in SODIUM CHLORIDE 0.9% 100 ML IV SCH ×3 (01:52→18:42)
[2021-11-14] MEDS: ARFORMOTEROL 15 MCG/2 ML NEB RESP TX SCH ×2 (08:07→19:25)
[2021-11-14] MEDS: BUDESONIDE 0.5 MG/2 ML NEB RESP TX SCH ×2 (08:08→19:25)
[2021-11-14] MEDS: INSULIN LISPRO 100 UNIT/ML SUBCUT SCH ×4 (10:08→20:37)
[2021-11-14] MEDS: metFORMIN 850 MG TABLET PO SCH ×2 (10:35→20:36)
[2021-11-14] MEDS: allopurinoL 300 MG TABLET PO SCH (10:37)
[2021-11-14] MEDS: DOCUSATE SODIUM 100 MG CAPSULE PO SCH ×2 (10:38→20:36)
[2021-11-14] MEDS: MAGNESIUM CHLORIDE 64 MG TABLET PO SCH (10:39)
[2021-11-14] MEDS: MULTIVITAMIN (CENTRUM) TABLET PO SCH (10:40)
[2021-11-14] MEDS: CYPROHEPTADINE 4 MG TABLET PO SCH (10:43)
[2021-11-14] MEDS: PANTOPRAZOLE 40 MG TABLET PO SCH (10:43)
[2021-11-14] MEDS: LIDOCAINE 5% PATCH TRANSDERM SCH (10:47)
[2021-11-14] MEDS: glipiZIDE 10 MG TABLET PO SCH ×2 (10:48→20:36)
[2021-11-14] MEDS: amLODIPine 2.5 MG TABLET PO SCH (10:48)
[2021-11-14] MEDS: CLORAZEPATE 7.5 MG TABLET PO SCH ×2 (10:48→20:45)
[2021-11-14] MEDS: ENALAPRIL 20 MG TABLET PO SCH ×2 (10:48→11:02)
[2021-11-14] MEDS: atenoloL 50 MG TABLET PO SCH ×2 (10:48→11:00)
[2021-11-14] MEDS: MELOXICAM 7.5 MG TABLET PO SCH ×2 (10:49→11:02)
[2021-11-14] MEDS: THEOPHYLLINE ER (24 HR) 400 MG CAPSULE PO SCH (10:49)
[2021-11-14] MEDS: FUROSEMIDE 40 MG/4 ML VIAL IV SCH (13:48)
[2021-11-14] MEDS: SODIUM CHLORIDE 0.9% 1,000 ML IV SCH (17:01)
[2021-11-14] MEDS: VANCOMYCIN INJ 1,250 MG in SODIUM CHLORIDE 0.9% 250 ML IV SCH (17:05)
[2021-11-14] MEDS: SIMVASTATIN 20 MG TABLET PO SCH (20:36)
[2021-11-14] MEDS ORDERED: POTASSIUM CHLORIDE 20 MEQ TABLET PO ONE (21:49)
[2021-11-14] MEDS ORDERED: FUROSEMIDE 20 MG/2 ML VIAL IV ONE (21:53)
[2021-11-15] MEDS: ALBUTEROL/IPRATROPIUM 3 ML NEB RESP TX SCH ×7 (00:20→23:35)
[2021-11-15] MEDS: methylPREDNISolone SOD SUC 40 MG/1 ML VIAL IV SCH ×3 (01:51→17:15)
[2021-11-15] MEDS: PIPERACILLIN/TAZOBACTAM 3,375 MG in SODIUM CHLORIDE 0.9% 100 ML IV SCH ×3 (02:46→19:08)
[2021-11-15 04:50] LABS: Basophils % 0.2 % (0.0-0.8); Eosinophils # 0.2 10*3/uL (0.0-0.87); Hematocrit 34.8 VOL% (35.7-47.0); Hemoglobin 10.3 GM/DL (12.0-16.0); Immature Granulocytes % 2.1 %; Immature Granulocytes Absolute 0.45 #; Lymphocytes # 0.5 10*3/uL (1.4-4.0); Lymphocytes % 2.2 % (21.3-54.2); Mean Corpuscular HGB Conc 29.6 GM/DL (32-36); Mean Corpuscular Volume 98.9 FL (87-102); Mean Platelet Volume 11.8 FL (9.6-12.0); Monocytes % 4.4 % (1.7-12.7); Neutrophils % 90.1 % (38.7-73.9); Platelet Count 151 T/CUMM (130-400); Red Blood Count 3.52 MC/CUMM (3.8-5.5); Red Cell Distribution Width 15.3 % (9.3-17.3); White Blood Count 21.4 T/CUMM (4-12)
[2021-11-15 05:15] LABS: Alanine Aminotransferase 20 U/L (13-56); Albumin 2.3 G/DL (3.4-5.0); Alkaline Phosphatase 51 U/L (45-117); Aspartate Amino Transferase 14 U/L (0-37); Bilirubin,Total < 0.39 MG/DL (0.20-1.00); Blood Urea Nitrogen 39 MG/DL (7-18); Calcium 8.7 MG/DL (8.5-10.1); Carbon Dioxide 31 MMOL/L (21-32); Chloride 112 MMOL/L (98-107); Glucose 60 MG/DL (74-106); Potassium 3.6 MMOL/L (3.5-5.1); Sodium 150 MMOL/L (136-145); Total Protein 6.4 G/DL (6.4-8.2)
[2021-11-15 05:18] LABS: Eosinophils 1 % (0-10); Lymphocytes 1 % (20-55); Platelet Estimate Adequate; Total Cells Counted 100
[2021-11-15] MEDS: ARFORMOTEROL 15 MCG/2 ML NEB RESP TX SCH ×2 (07:20→19:15)
[2021-11-15] MEDS: BUDESONIDE 0.5 MG/2 ML NEB RESP TX SCH ×2 (07:20→19:15)
[2021-11-15] MEDS: INSULIN LISPRO 100 UNIT/ML SUBCUT SCH ×4 (08:02→20:57)
[2021-11-15] MEDS: ENALAPRIL 20 MG TABLET PO SCH (10:48)
[2021-11-15] MEDS: THEOPHYLLINE ER (24 HR) 400 MG CAPSULE PO SCH (10:51)
[2021-11-15] MEDS: DOCUSATE SODIUM 100 MG CAPSULE PO SCH ×2 (10:51→20:58)
[2021-11-15] MEDS: MULTIVITAMIN (CENTRUM) TABLET PO SCH (10:52)
[2021-11-15] MEDS: MAGNESIUM CHLORIDE 64 MG TABLET PO SCH (10:52)
[2021-11-15] MEDS: metFORMIN 850 MG TABLET PO SCH ×2 (10:52→20:58)
[2021-11-15] MEDS: CLORAZEPATE 7.5 MG TABLET PO SCH ×2 (10:52→20:58)
[2021-11-15] MEDS: glipiZIDE 10 MG TABLET PO SCH ×2 (10:53→20:58)
[2021-11-15] MEDS: MELOXICAM 7.5 MG TABLET PO SCH (10:53)
[2021-11-15] MEDS: CYPROHEPTADINE 4 MG TABLET PO SCH (10:54)
[2021-11-15] MEDS: PANTOPRAZOLE 40 MG TABLET PO SCH (10:54)
[2021-11-15] MEDS: amLODIPine 2.5 MG TABLET PO SCH (10:55)
[2021-11-15] MEDS: allopurinoL 300 MG TABLET PO SCH (10:55)
[2021-11-15] MEDS: atenoloL 50 MG TABLET PO SCH (10:55)
[2021-11-15] MEDS: LIDOCAINE 5% PATCH TRANSDERM SCH (10:55)
[2021-11-15] MEDS: FUROSEMIDE 40 MG/4 ML VIAL IV SCH (11:12)
[2021-11-15] MEDS: VANCOMYCIN INJ 1,250 MG in SODIUM CHLORIDE 0.9% 250 ML IV SCH (11:22)
[2021-11-15] MEDS: SODIUM CHLORIDE 0.45% 1,000 ML IV SCH (11:23)
[2021-11-15] MEDS: SIMVASTATIN 20 MG TABLET PO SCH (20:58)
[2021-11-16] MEDS: methylPREDNISolone SOD SUC 40 MG/1 ML VIAL IV SCH ×3 (01:05→17:10)
[2021-11-16] MEDS: VANCOMYCIN INJ 1,250 MG in SODIUM CHLORIDE 0.9% 250 ML IV SCH ×2 (02:46→20:15)
[2021-11-16] MEDS: ALBUTEROL/IPRATROPIUM 3 ML NEB RESP TX SCH ×6 (04:00→23:58)
[2021-11-16] MEDS: PIPERACILLIN/TAZOBACTAM 3,375 MG in SODIUM CHLORIDE 0.9% 100 ML IV SCH ×3 (04:10→22:41)
[2021-11-16] MEDS: ARFORMOTEROL 15 MCG/2 ML NEB RESP TX SCH ×2 (07:25→20:00)
[2021-11-16] MEDS: BUDESONIDE 0.5 MG/2 ML NEB RESP TX SCH ×2 (07:25→20:00)
[2021-11-16] MEDS: INSULIN LISPRO 100 UNIT/ML SUBCUT SCH ×4 (07:49→20:47)
[2021-11-16] MEDS ORDERED: LIDOCAINE 1%/EPI INJ 20 ML VIAL ONE (07:53)
[2021-11-16] MEDS ORDERED: MIDAZOLAM 2 MG/2 ML VIAL ONE (08:01)
[2021-11-16] MEDS ORDERED: KETAMINE 500 MG/10 ML VIAL ONE (08:01)
[2021-11-16] MEDS ORDERED: ESMOLOL 100 MG/10 ML VIAL IV ONE (09:05)
[2021-11-16] MEDS ORDERED: KETOROLAC 30 MG/1 ML VIAL IV ONE (09:12)
[2021-11-16] MEDS ORDERED: MEPERIDINE 25 MG/1 ML VIAL ONE (09:18)
[2021-11-16] MEDS ORDERED: ONDANSETRON 4 MG/2 ML VIAL IV PRN (09:35)
[2021-11-16] MEDS ORDERED: MEPERIDINE 25 MG/1 ML VIAL IV PRN (09:35)
[2021-11-16] MEDS: THEOPHYLLINE ER (24 HR) 400 MG CAPSULE PO SCH (10:45)
[2021-11-16] MEDS: metFORMIN 850 MG TABLET PO SCH ×2 (10:45→20:46)
[2021-11-16] MEDS: MAGNESIUM CHLORIDE 64 MG TABLET PO SCH (10:45)
[2021-11-16] MEDS: atenoloL 50 MG TABLET PO SCH (10:45)
[2021-11-16] MEDS: PANTOPRAZOLE 40 MG TABLET PO SCH (10:45)
[2021-11-16] MEDS: CYPROHEPTADINE 4 MG TABLET PO SCH (10:46)
[2021-11-16] MEDS: DOCUSATE SODIUM 100 MG CAPSULE PO SCH ×2 (10:46→20:46)
[2021-11-16] MEDS: amLODIPine 2.5 MG TABLET PO SCH (10:46)
[2021-11-16] MEDS: ENALAPRIL 20 MG TABLET PO SCH (10:46)
[2021-11-16] MEDS: allopurinoL 300 MG TABLET PO SCH (10:46)
[2021-11-16] MEDS: MULTIVITAMIN (CENTRUM) TABLET PO SCH (10:46)
[2021-11-16] MEDS: glipiZIDE 10 MG TABLET PO SCH ×2 (10:46→20:47)
[2021-11-16] MEDS: LIDOCAINE 5% PATCH TRANSDERM SCH (10:47)
[2021-11-16] MEDS: FUROSEMIDE 40 MG/4 ML VIAL IV SCH (10:48)
[2021-11-16] MEDS: MELOXICAM 7.5 MG TABLET PO SCH (11:16)
[2021-11-16] MEDS: KETOROLAC 10 MG TABLET PO SCH ×3 (12:58→23:45)
[2021-11-16] MEDS: SODIUM CHLORIDE 0.45% 1,000 ML IV SCH (19:14)
[2021-11-16] MEDS: SIMVASTATIN 20 MG TABLET PO SCH (20:47)
[2021-11-16] MEDS: ENOXAPARIN 40 MG/0.4 ML SYRINGE SUBCUT SCH (21:00)
[2021-11-17] MEDS: methylPREDNISolone SOD SUC 40 MG/1 ML VIAL IV SCH ×3 (00:54→18:51)
[2021-11-17] MEDS: ALBUTEROL/IPRATROPIUM 3 ML NEB RESP TX SCH ×6 (03:20→23:15)
[2021-11-17] MEDS: KETOROLAC 10 MG TABLET PO SCH ×3 (05:28→18:52)
[2021-11-17] MEDS: PIPERACILLIN/TAZOBACTAM 3,375 MG in SODIUM CHLORIDE 0.9% 100 ML IV SCH ×3 (05:28→22:34)
[2021-11-17 05:59] LABS: Basophils % 0.2 % (0.0-0.8); Eosinophils % 0.2 % (0.00-10.9); Hematocrit 37.6 VOL% (35.7-47.0); Hemoglobin 11.2 GM/DL (12.0-16.0); Immature Granulocytes % 1.9 %; Immature Granulocytes Absolute 0.36 #; Lymphocytes # 0.5 10*3/uL (1.4-4.0); Lymphocytes % 2.8 % (21.3-54.2); Mean Corpuscular HGB Conc 29.8 GM/DL (32-36); Mean Corpuscular Volume 99.2 FL (87-102); Mean Platelet Volume 11.9 FL (9.6-12.0); Monocytes # 0.8 10*3/uL (0.11-0.8); Monocytes % 4.2 % (1.7-12.7); Neutrophils % 90.7 % (38.7-73.9); Platelet Count 139 T/CUMM (130-400); Red Blood Count 3.79 MC/CUMM (3.8-5.5); Red Cell Distribution Width 15.4 % (9.3-17.3); White Blood Count 18.6 T/CUMM (4-12)
[2021-11-17 06:05] LABS: Alanine Aminotransferase 22 U/L (13-56); Albumin 2.2 G/DL (3.4-5.0); Alkaline Phosphatase 50 U/L (45-117); Aspartate Amino Transferase 13 U/L (0-37); Bilirubin,Total < 0.39 MG/DL (0.20-1.00); Blood Urea Nitrogen 53 MG/DL (7-18); Calcium 8.4 MG/DL (8.5-10.1); Carbon Dioxide 29 MMOL/L (21-32); Chloride 111 MMOL/L (98-107); Glucose 97 MG/DL (74-106); Lymphocytes 5 % (20-55); Osmolality,Calculated 303.6 MOS/KG (273-304); Potassium 4.8 MMOL/L (3.5-5.1); Sodium 146 MMOL/L (136-145); Total Cells Counted 100; Total Protein 6.1 G/DL (6.4-8.2)
[2021-11-17 06:06] LABS: Platelet Estimate Normal
[2021-11-17] MEDS: BUDESONIDE 0.5 MG/2 ML NEB RESP TX SCH ×2 (08:05→19:25)
[2021-11-17] MEDS: ARFORMOTEROL 15 MCG/2 ML NEB RESP TX SCH ×2 (08:05→19:25)
[2021-11-17] MEDS: PANTOPRAZOLE 40 MG TABLET PO SCH (10:32)
[2021-11-17] MEDS: THEOPHYLLINE ER (24 HR) 400 MG CAPSULE PO SCH (10:33)
[2021-11-17] MEDS: MAGNESIUM CHLORIDE 64 MG TABLET PO SCH (10:33)
[2021-11-17] MEDS: CYPROHEPTADINE 4 MG TABLET PO SCH (10:33)
[2021-11-17] MEDS: glipiZIDE 10 MG TABLET PO SCH ×2 (10:33→22:35)
[2021-11-17] MEDS: metFORMIN 850 MG TABLET PO SCH ×2 (10:33→22:33)
[2021-11-17] MEDS: ENALAPRIL 20 MG TABLET PO SCH (10:33)
[2021-11-17] MEDS: DOCUSATE SODIUM 100 MG CAPSULE PO SCH ×2 (10:33→22:33)
[2021-11-17] MEDS: allopurinoL 300 MG TABLET PO SCH (10:33)
[2021-11-17] MEDS: MULTIVITAMIN (CENTRUM) TABLET PO SCH (10:33)
[2021-11-17] MEDS: FUROSEMIDE 40 MG/4 ML VIAL IV SCH (10:34)
[2021-11-17] MEDS: LIDOCAINE 5% PATCH TRANSDERM SCH (10:34)
[2021-11-17] MEDS: atenoloL 50 MG TABLET PO SCH (10:35)
[2021-11-17] MEDS: INSULIN LISPRO 100 UNIT/ML SUBCUT SCH ×4 (10:35→22:35)
[2021-11-17] MEDS: SODIUM CHLORIDE 0.45% 1,000 ML IV SCH (13:22)
[2021-11-17] MEDS: SIMVASTATIN 20 MG TABLET PO SCH (22:33)
[2021-11-17] MEDS: ENOXAPARIN 40 MG/0.4 ML SYRINGE SUBCUT SCH (22:34)
[2021-11-18] MEDS: methylPREDNISolone SOD SUC 40 MG/1 ML VIAL IV SCH ×3 (01:52→13:33)
[2021-11-18] MEDS: KETOROLAC 10 MG TABLET PO SCH ×3 (01:55→11:31)
[2021-11-18] MEDS: SODIUM CHLORIDE 0.45% 1,000 ML IV SCH ×2 (02:45→17:52)
[2021-11-18] MEDS: ALBUTEROL/IPRATROPIUM 3 ML NEB RESP TX SCH ×6 (03:13→23:35)
[2021-11-18 05:44] LABS: Calcium 8.6 MG/DL (8.5-10.1); Osmolality,Calculated 308.8 MOS/KG (273-304); Potassium 3.9 MMOL/L (3.5-5.1)
[2021-11-18 06:15] LABS: Basophils % 0.1 % (0.0-0.8); Eosinophils # 0.2 10*3/uL (0.0-0.87); Eosinophils % 0.8 % (0.00-10.9); Hematocrit 34.7 VOL% (35.7-47.0); Hemoglobin 10.5 GM/DL (12.0-16.0); Immature Granulocytes % 1.8 %; Immature Granulocytes Absolute 0.34 #; Lymphocytes # 0.5 10*3/uL (1.4-4.0); Lymphocytes % 2.5 % (21.3-54.2); Mean Corpuscular HGB Conc 30.3 GM/DL (32-36); Mean Corpuscular Volume 100.3 FL (87-102); Mean Platelet Volume 12.4 FL (9.6-12.0); Monocytes # 0.8 10*3/uL (0.11-0.8); Monocytes % 4.3 % (1.7-12.7); Neutrophils % 90.5 % (38.7-73.9); Platelet Count 155 T/CUMM (130-400); Red Blood Count 3.46 MC/CUMM (3.8-5.5); Red Cell Distribution Width 15.3 % (9.3-17.3); White Blood Count 18.9 T/CUMM (4-12)
[2021-11-18] MEDS: PIPERACILLIN/TAZOBACTAM 3,375 MG in SODIUM CHLORIDE 0.9% 100 ML IV SCH (06:32)
[2021-11-18 07:01] LABS: Eosinophils 1 % (0-10); Lymphocytes 3 % (20-55); Total Cells Counted 100
[2021-11-18 07:02] LABS: Macrocytosis Slight
[2021-11-18 07:07] LABS: Platelet Estimate Adequate
[2021-11-18] MEDS: BUDESONIDE 0.5 MG/2 ML NEB RESP TX SCH ×2 (07:21→19:25)
[2021-11-18] MEDS: ARFORMOTEROL 15 MCG/2 ML NEB RESP TX SCH ×2 (07:21→19:25)
[2021-11-18] MEDS: PANTOPRAZOLE 40 MG TABLET PO SCH (08:55)
[2021-11-18] MEDS: DOCUSATE SODIUM 100 MG CAPSULE PO SCH ×2 (08:56→20:57)
[2021-11-18] MEDS: metFORMIN 850 MG TABLET PO SCH (08:56)
[2021-11-18] MEDS: MAGNESIUM CHLORIDE 64 MG TABLET PO SCH (08:56)
[2021-11-18] MEDS: MULTIVITAMIN (CENTRUM) TABLET PO SCH (08:56)
[2021-11-18] MEDS: atenoloL 50 MG TABLET PO SCH (08:56)
[2021-11-18] MEDS: glipiZIDE 10 MG TABLET PO SCH ×2 (08:56→20:57)
[2021-11-18] MEDS: CYPROHEPTADINE 4 MG TABLET PO SCH (08:56)
[2021-11-18] MEDS: THEOPHYLLINE ER (24 HR) 400 MG CAPSULE PO SCH (08:56)
[2021-11-18] MEDS: allopurinoL 300 MG TABLET PO SCH (08:56)
[2021-11-18] MEDS: INSULIN LISPRO 100 UNIT/ML SUBCUT SCH ×4 (09:21→21:16)
[2021-11-18] MEDS: CLORAZEPATE 7.5 MG TABLET PO PRN ×2 (10:34→20:58)
[2021-11-18] MEDS: LIDOCAINE 5% PATCH TRANSDERM SCH (10:37)
[2021-11-18] MEDS: DEXT 5% NACL 0.45% KCL 20 MEQ 20 MEQ/1,000 ML BAG IV SCH ×2 (14:44→22:09)
[2021-11-18] MEDS: BENZONATATE 100 MG CAPSULE PO PRN (15:30)
[2021-11-18] MEDS: MELATONIN 3 MG TABLET PO PRN (20:57)
[2021-11-18] MEDS: ENOXAPARIN 40 MG/0.4 ML SYRINGE SUBCUT SCH (21:16)
[2021-11-19] MEDS: methylPREDNISolone SOD SUC 40 MG/1 ML VIAL IV SCH (00:03)
[2021-11-19] MEDS: ALBUTEROL/IPRATROPIUM 3 ML NEB RESP TX SCH ×6 (03:45→22:30)
[2021-11-19 04:20] VITALS: BP 149/86
[2021-11-19 05:03] LABS: Basophils # 0.1 10*3/uL (0.0-0.2); Basophils % 0.2 % (0.0-0.8); Eosinophils # 0.2 10*3/uL (0.0-0.87); Eosinophils % 0.7 % (0.00-10.9); Hemoglobin 11.2 GM/DL (12.0-16.0); Immature Granulocytes % 2.4 %; Lymphocytes # 0.9 10*3/uL (1.4-4.0); Lymphocytes % 3.7 % (21.3-54.2); Mean Corpuscular HGB Conc 30.3 GM/DL (32-36); Mean Corpuscular Volume 98.9 FL (87-102); Mean Platelet Volume 12.3 FL (9.6-12.0); Monocytes # 1.6 10*3/uL (0.11-0.8); Monocytes % 6.6 % (1.7-12.7); Neutrophils % 86.4 % (38.7-73.9); Platelet Count 190 T/CUMM (130-400); Red Blood Count 3.74 MC/CUMM (3.8-5.5); Red Cell Distribution Width 15.3 % (9.3-17.3); White Blood Count 24.6 T/CUMM (4-12)
[2021-11-19 05:16] LABS: Alanine Aminotransferase 20 U/L (13-56); Albumin 2.3 G/DL (3.4-5.0); Alkaline Phosphatase 62 U/L (45-117); Aspartate Amino Transferase 14 U/L (0-37); Bilirubin,Total < 0.39 MG/DL (0.20-1.00); Blood Urea Nitrogen 76 MG/DL (7-18); Calcium 8.5 MG/DL (8.5-10.1); Carbon Dioxide 29 MMOL/L (21-32); Chloride 109 MMOL/L (98-107); Glucose 198 MG/DL (74-106); Sodium 143 MMOL/L (136-145); Total Protein 6.3 G/DL (6.4-8.2)
[2021-11-19 05:33] LABS: Lymphocytes 5 % (20-55); Platelet Estimate Normal; Total Cells Counted 100
[2021-11-19] MEDS: DEXT 5% NACL 0.45% KCL 20 MEQ 20 MEQ/1,000 ML BAG IV SCH (05:51)
[2021-11-19] MEDS: ACETAMINOPHEN 325 MG TABLET PO PRN (05:56)
[2021-11-19] MEDS ORDERED: FUROSEMIDE 40 MG/4 ML VIAL ONE (07:47)
[2021-11-19] MEDS ORDERED: FUROSEMIDE 40 MG/4 ML VIAL IV ONE (07:52)
[2021-11-19] MEDS: ARFORMOTEROL 15 MCG/2 ML NEB RESP TX SCH ×2 (08:16→19:20)
[2021-11-19] MEDS: BUDESONIDE 0.5 MG/2 ML NEB RESP TX SCH ×2 (08:16→19:20)
[2021-11-19 08:33] LABS: Amorphous Crystals,Urine Occasional /HPF (Few); Bilirubin,Urine Negative (Negative); Blood, Urine Negative (Negative); Glucose,Urine (UA) Negative (Negative); Ketones,Urine Negative (Negative); Mucus,Urine Occasional /LPF (Occasional); Nitrite,Urine Negative (Negative); Protein,Urine 30 mg/dL (Negative); RBC,Urine <1 /HPF (0-4); Squamous Epithelial Cell,Urine Occasional /HPF (0-10); Urine Appearance Clear (Clear); Urine Color Yellow (Yellow); Urine Specific Gravity 1.025 (1.001-1.035); Urine Urobilinogen 0.2 eU/dL (<2.0)
[2021-11-19 10:10] LABS: Arterial Base Excess iSTAT 2 MMOL/L (-2.5-2.5); Arterial Bicarbonate iSTAT 30.3 MMOL/L (20-26); Arterial O2 Saturation iSTAT 93 % (95-100); Arterial PCO2 iSTAT 64 MM HG (35-48); Arterial PO2 iSTAT 78 MM HG (80-95); Arterial Total CO2 iSTAT 32 MMO/L (23-27); Arterial pH iSTAT 7.283 (7.35-7.45)
[2021-11-19] MEDS: INSULIN LISPRO 100 UNIT/ML SUBCUT SCH ×3 (10:43→15:48)
[2021-11-19] MEDS: PIPERACILLIN/TAZOBACTAM 3,375 MG in SODIUM CHLORIDE 0.9% 100 ML IV SCH ×2 (11:01→18:35)
[2021-11-19] MEDS: LIDOCAINE 5% PATCH TRANSDERM SCH (11:10)
[2021-11-19] MEDS: MULTIVITAMIN (CENTRUM) TABLET PO SCH (12:15)
[2021-11-19] MEDS: DOCUSATE SODIUM 100 MG CAPSULE PO SCH ×2 (12:15→22:16)
[2021-11-19] MEDS: PANTOPRAZOLE 40 MG TABLET PO SCH (12:15)
[2021-11-19] MEDS: THEOPHYLLINE ER (24 HR) 400 MG CAPSULE PO SCH (12:15)
[2021-11-19] MEDS: MAGNESIUM CHLORIDE 64 MG TABLET PO SCH (12:15)
[2021-11-19] MEDS: atenoloL 50 MG TABLET PO SCH (12:15)
[2021-11-19] MEDS: glipiZIDE 10 MG TABLET PO SCH (12:15)
[2021-11-19] MEDS: allopurinoL 300 MG TABLET PO SCH (12:16)
[2021-11-19] MEDS: CYPROHEPTADINE 4 MG TABLET PO SCH (12:16)
[2021-11-20] MEDS: MORPHINE 2 MG/1 ML SYRINGE IV PRN ×5 (00:14→12:39)
[2021-11-20] MEDS: ENOXAPARIN 40 MG/0.4 ML SYRINGE SUBCUT SCH (00:14)
[2021-11-20] MEDS: INSULIN LISPRO 100 UNIT/ML SUBCUT SCH ×2 (00:38→07:39)
[2021-11-20] MEDS: ALBUTEROL/IPRATROPIUM 3 ML NEB RESP TX SCH ×2 (03:10→06:56)
[2021-11-20] MEDS: PIPERACILLIN/TAZOBACTAM 3,375 MG in SODIUM CHLORIDE 0.9% 100 ML IV SCH (04:50)
[2021-11-20 06:11] LABS: Basophils # 0.1 10*3/uL (0.0-0.2); Basophils % 0.3 % (0.0-0.8); Eosinophils # 0.1 10*3/uL (0.0-0.87); Eosinophils % 0.6 % (0.00-10.9); Hematocrit 34.5 VOL% (35.7-47.0); Hemoglobin 10.2 GM/DL (12.0-16.0); Immature Granulocytes % 2.4 %; Immature Granulocytes Absolute 0.42 #; Lymphocytes # 0.6 10*3/uL (1.4-4.0); Lymphocytes % 3.4 % (21.3-54.2); Mean Corpuscular HGB Conc 29.6 GM/DL (32-36); Mean Corpuscular Volume 98.6 FL (87-102); Mean Platelet Volume 12.7 FL (9.6-12.0); Monocytes # 0.9 10*3/uL (0.11-0.8); Neutrophils % 88.3 % (38.7-73.9); Platelet Count 152 T/CUMM (130-400); Red Cell Distribution Width 15.5 % (9.3-17.3); White Blood Count 17.8 T/CUMM (4-12)
[2021-11-20 06:34] LABS: Alanine Aminotransferase 20 U/L (13-56); Albumin 2.2 G/DL (3.4-5.0); Alkaline Phosphatase 53 U/L (45-117); Aspartate Amino Transferase 17 U/L (0-37); Bilirubin,Total < 0.39 MG/DL (0.20-1.00); Blood Urea Nitrogen 81 MG/DL (7-18); Calcium 8.2 MG/DL (8.5-10.1); Carbon Dioxide 29 MMOL/L (21-32); Chloride 112 MMOL/L (98-107); Glucose 161 MG/DL (74-106); Osmolality,Calculated 316.6 MOS/KG (273-304); Potassium 4.5 MMOL/L (3.5-5.1); Sodium 146 MMOL/L (136-145); Total Protein 5.9 G/DL (6.4-8.2)
[2021-11-20] MEDS: BUDESONIDE 0.5 MG/2 ML NEB RESP TX SCH (06:56)
[2021-11-20] MEDS: ARFORMOTEROL 15 MCG/2 ML NEB RESP TX SCH (06:56)
[2021-11-20 08:13] LABS: Anisocytosis Slight; Band Neutrophils 8 % (0-10); Lymphocytes 6 % (20-55); Macrocytosis Slight; Myelocytes 1 %; Platelet Estimate Normal; Total Cells Counted 100
[2021-11-20] MEDS: THEOPHYLLINE ER (24 HR) 400 MG CAPSULE PO SCH (09:14)
[2021-11-20] MEDS: atenoloL 50 MG TABLET PO SCH (09:14)
[2021-11-20] MEDS: CYPROHEPTADINE 4 MG TABLET PO SCH (09:14)
[2021-11-20] MEDS: MAGNESIUM CHLORIDE 64 MG TABLET PO SCH (09:14)
[2021-11-20] MEDS: PANTOPRAZOLE 40 MG TABLET PO SCH (09:14)
[2021-11-20] MEDS: DOCUSATE SODIUM 100 MG CAPSULE PO SCH (09:14)
[2021-11-20] MEDS: MULTIVITAMIN (CENTRUM) TABLET PO SCH (09:14)
[2021-11-20] MEDS: allopurinoL 300 MG TABLET PO SCH (09:15)
[2021-11-20] MEDS ORDERED: LORazepam 1 MG TABLET PO PRN (09:59)
[2021-11-20] MEDS ORDERED: NALOXONE 0.4 MG/ML VIAL IV PRN (11:32)
[2021-11-20] MEDS ORDERED: MORPHINE PCA 30 MG/30 ML SYRINGE IV SCH (12:00)
[2021-11-20] MEDS: LIDOCAINE 5% PATCH TRANSDERM SCH (12:43)
[2021-11-20] MEDS: MORPHINE 2 MG/1 ML SYRINGE IV SCH ×7 (12:59→19:01)
== END 2021-11-20 19:06 | disposition expired | DRG 193 ==
LOC: N.ED 08:21 → N.EDINP 08:21 → N.TELEN 13:00 → SUATTDRO 11-10 15:54 → N.ICU 11-19 07:32
PROVIDERS: ADMIT Family Medicine; ATTEND Family Medicine